=== PATIENT | male | born 1970 | race African-American/Black ===

== ENCOUNTER 2023-09-01 17:11 | Emergency (ER) | payer BC ==
[2023-09-01 17:29] VITALS: RESP 18; TEMP 98.2; BMI 25.7
[2023-09-01] MEDS ORDERED: amLODIPine BESYLATE 10 MG TABLET (FP) PO ONE (18:12)
[2023-09-01] MEDS ORDERED: amLODIPine BESYLATE 10 MG TABLET (FP) ONE (18:26)
[2023-09-01 18:51] VITALS: PULSE 74
[2023-09-01 18:51] LABS: PH,URINE 5.5 (5.0-8.0); URINE APPEARANCE Clear; URINE BILIRUBIN Negative (NEGATIVE); URINE COLOR Yellow; URINE GLUCOSE (UA) Negative (NEGATIVE); URINE KETONE Negative (NEGATIVE); URINE LEUK ESTERASE Negative (NEGATIVE); URINE NITRITE Negative (NEGATIVE); URINE PROTEIN Negative (NEGATIVE)
[2023-09-01 19:39] VITALS: BP 180/97
== END 2023-09-01 19:52 | disposition home or self-care (01) ==
LOC: JER 17:11
DX: I10 Essential (primary) hypertension (principal)
CPT/HCPCS: 81003; 87086; 93005; 93010; 99284-25